=== PATIENT | female | born 1970 | race African-American/Black ===

== ENCOUNTER 2018-02-10 19:37 | Observation (INO) | payer OTHER ==
[2018-02-10 19:59] LABS: ABSOLUTE EOSINOPHILS # (AUTO) 0.1 10^3/uL (0.0-0.6); ABSOLUTE LYMPHOCYTES (AUTO) 3.2 10^3/uL (0.5-4.7); ABSOLUTE MONOCYTES (AUTO) 0.5 10^3/uL (0.1-1.4); ABSOLUTE NEUT (AUTO) 2.1 10^3/uL (1.7-8.2); BASOPHILS % (AUTO) 0.6 % (0-2); EOSINOPHILS % (AUTO) 1.6 % (0-6); HEMATOCRIT 35.9 % (36.0-47.0); HEMOGLOBIN 12.1 g/dL (12.0-15.5); LYMPHOCYTES % (AUTO) 53.9 % (13-45); MEAN CORPUSCULAR HEMOGLOBIN 28.1 pg (27.0-33.4); MEAN CORPUSCULAR HGB CONC 33.6 g/dL (32.0-36.0); MEAN CORPUSCULAR VOLUME 84 fl (80-97); MONOCYTES % (AUTO) 8.7 % (3-13); PLATELET COUNT 327 10^3/uL (150-450); RED BLOOD COUNT 4.29 10^6/uL (3.72-5.28); SEGMENTED NEUTROPHILS % (AUTO) 35.2 % (42-78); TOTAL CELLS COUNTED % (AUTO) 100 %; WHITE BLOOD COUNT 5.9 10^3/uL (4.0-10.5)
[2018-02-10 20:05] LABS: ALANINE AMINOTRANSFERASE 17 U/L (9-52); ALBUMIN 4.4 g/dL (3.5-5.0); ALKALINE PHOSPHATASE 86 U/L (38-126); ANION GAP 16 (5-19); ASPARTATE AMINO TRANSFERASE 35 U/L (14-36); BILIRUBIN,DIRECT 0.3 mg/dL (0.0-0.4); BILIRUBIN,TOTAL 0.7 mg/dL (0.2-1.3); BLOOD UREA NITROGEN 15 mg/dL (7-20); CALCIUM 9.5 mg/dL (8.4-10.2); CARBON DIOXIDE 22 mmol/L (22-30); CHLORIDE 108 mmol/L (98-107); CREATINE KINASE 179 U/L (30-135); GLUCOSE 120 mg/dL (75-110); POTASSIUM 3.1 mmol/L (3.6-5.0); SODIUM 145.5 mmol/L (137-145); TOTAL PROTEIN 8.4 g/dL (6.3-8.2)
[2018-02-10 20:17] LABS: CREATINE KINASE MB 0.65 ng/mL (<4.55)
--- NOTE | 2018-02-10 20:18 | RADIOLOGY REPORT (SQ) ---
EXAM DESCRIPTION: CHEST SINGLE VIEW COMPLETED DATE/TIME: 02/10/2018 8:07 pm REASON FOR STUDY: CP COMPARISON: None. EXAM PARAMETERS: NUMBER OF VIEWS: One view. TECHNIQUE: Single frontal radiographic view of the chest acquired. RADIATION DOSE: NA LIMITATIONS: None. FINDINGS: LUNGS AND PLEURA: No opacities, masses or pneumothorax. No pleural effusion. MEDIASTINUM AND HILAR STRUCTURES: No masses. Contour normal. HEART AND VASCULAR STRUCTURES: Heart normal in size. Normal vasculature. BONES: No acute findings. HARDWARE: None in the chest. OTHER: No other significant finding. IMPRESSION: NO ACUTE RADIOGRAPHIC FINDING IN THE CHEST. TECHNICAL DOCUMENTATION: JOB ID: [id number] 6- All Rights Reserved Reading location - IP/workstation name: [email or web address]
[2018-02-10 20:29] LABS: TROPONIN I < 0.012 ng/mL
[2018-02-10] MEDS ORDERED: KETOROLAC TROMETHAMINE INJ/PF 30 MG/1 ML SDV IV ONE (21:31)
--- NOTE | 2018-02-10 21:40 | ER Document Report ---
ED General - General Chief Complaint: Chest Pain Stated Complaint: CHEST PAIN Time Seen by Provider: 02/10/18 19:45 Notes: Patient is a 48-year-old female with a past medical history of hypercholesterolemia, no prior known history of coronary artery disease or DC who presents with chest pain. The patient reports that for the past 36 hours every time she exerts herself she develops right shoulder pain that is a dull, throbbing pain. She notes associated shortness of breath with this pain. The pain does resolve after she rests. She states today however she was at a Bible study at approximately 1830 when she developed an acute onset of a tight, pressure-like sensation in the left side of her chest. She states that she had pain in her left jaw and right arm with associated shortness of breath. She states that her symptoms were resolved after receiving 3 sublingual nitroglycerin by EMS. She also received aspirin prior to arrival. She denies any symptoms at the time of my assessment. She denies any history of similar symptoms in the past. She has not contacted her primary care doctor regarding today's concerns. She reports that she had a stress test approximately 10 years ago which was noted to be normal. - Related Data Allergies/Adverse Reactions: codeine Allergy (Verified 02/10/18 20:33) metoclopramide [From Reglan] Allergy (Verified 02/10/18 20:33) Past Medical History - General Information source: Patient - Social History Smoking Status: Never Smoker Frequency of alcohol use: None Drug Abuse: None Lives with: Family Family History: Reviewed & Not Pertinent Patient has suicidal ideation: No Patient has homicidal ideation: No - Past Medical History Cardiac Medical History: Reports: Hx Heart Attack Neurological Medical History: Reports: Hx Migraine Renal/ Medical History: Denies: Hx Peritoneal Dialysis Past Surgical History: Reports: Hx Hysterectomy, Hx Orthopedic Surgery - Rt knee Review of Systems - Review of Systems Notes: Constitutional: Negative for fever. HENT: Negative for sore throat. Eyes: Negative for visual changes. Cardiovascular: Positive for chest pain. Respiratory: Positive for shortness of breath. Gastrointestinal: Negative for abdominal pain, vomiting or diarrhea. Genitourinary: Negative for dysuria. Musculoskeletal: Negative for back pain. Skin: Negative for rash. Neurological: Negative for headaches, weakness or numbness. 10 point ROS negative except as marked above and in HPI. Physical Exam - Vital signs Vitals: Pulse Ox 97 02/10/18 19:42 Interpretation: Normal Notes: PHYSICAL EXAMINATION: GENERAL: Well-appearing, well-nourished and in no acute distress. HEAD: Atraumatic, normocephalic. EYES: Pupils equal round and reactive to light, extraocular movements intact, sclera anicteric, conjunctiva are normal. ENT: nares patent, oropharynx clear without exudates. Moist mucous membranes. NECK: Normal range of motion, supple without lymphadenopathy LUNGS: Breath sounds clear to auscultation bilaterally and equal. No wheezes rales or rhonchi. HEART: Regular rate and rhythm without murmurs ABDOMEN: Soft, nontender, normoactive bowel sounds. No guarding, no rebound. No masses appreciated. EXTREMITIES: Normal range of motion, no pitting or edema. No cyanosis. NEUROLOGICAL: No focal neurological deficits. Moves all extremities spontaneously and on command. PSYCH: Normal mood, normal affect. SKIN: Warm, Dry, normal turgor, no rashes or lesions noted. Course - Re-evaluation Re-evalutation: 02/10/18 21:38 Patient presents with a concerning chest pain history chest pain radiating to the left jaw, right arm with associated shortness of breath. She is also had intermittent symptoms worrisome for angina over the last 36 hours in which her right shoulder becomes painful and she develops shortness of breath when she exerts herself. She has had resolution of her chest pain after receiving 3 sublingual nitroglycerin by EMS. EKG shows some flattening in the anterior leads but no additional EKG findings. No old for comparison. Initial troponin is normal. Patient's clinical history is not consistent with an aortic dissection, chest x-ray is clear without evidence of pneumothorax or widened mediastinum. Clinical history is not consistent with acute pulmonary embolus, well score 0. I discussed with the hospitalist who is excepted the patient for admission for inpatient stress testing and serial cardiac markers as her heart score is elevated at 5. - Vital Signs Vital signs: Temp Pulse Resp BP Pulse Ox 97.7 F 59 L 16 106/67 100 02/11/18 01:12 02/11/18 02:00 02/11/18 01:12 02/11/18 01:12 02/11/18 01:12 - Laboratory Result Diagrams: 02/10/18 19:21 02/10/18 19:21 Laboratory results interpreted by me: 02/10/18 02/10/18 19:21 19:21 Hct 35.9 L RDW 15.0 H Seg Neutrophils % 35.2 L Lymphocytes % 53.9 H Sodium 145.5 H Potassium 3.1 L Chloride 108 H Glucose 120 H Creatine Kinase 179 H Total Protein 8.4 H - Diagnostic Test Radiology reviewed: Image reviewed, Reports reviewed Radiology results interpreted by me: 02/10/18 21:39 Chest x-ray: No acute infiltrate or pneumothorax - EKG Interpretation by Me Additional EKG results interpreted by me: 02/10/18 21:39 Sinus rhythm. Rate 95. No ST elevations or depressions. QTC is 443. Discharge - Discharge Clinical Impression: Angina effort Chest pain Qualifiers: Chest pain type: unspecified Qualified Code(s): R07.9 - Chest pain, unspecified Condition: Fair Disposition: ADMITTED OBSERVATION Admitting Provider: Hospitalist Unit Admitted: Telemetry
[2018-02-10] MEDS ORDERED: DEXTROSE 40% GEL 15 GM TUBE PO PRN ×2 (23:29)
[2018-02-10] MEDS ORDERED: GLUCAGON,HUMAN RECOMB 1 MG INJ SUBCUT PRN (23:29)
[2018-02-10] MEDS ORDERED: NITROGLYCERIN 0.4 MG/TAB 25 TAB/BOTTLE SL PRN (23:29)
[2018-02-10] MEDS ORDERED: DEXTROSE 50%-WATER 25 GM/50 ML DISP.SYRIN IV PRN ×2 (23:29)
[2018-02-10] MEDS ORDERED: HEPARIN SOD (PORCINE) 5,000 UNIT/ML 1 ML SYRINGE SUBCUT SCH (23:45)
--- NOTE | 2018-02-11 00:30 | PDOC H&P ---
History of Present Illness Admission Date/PCP: 02/10/18 21:54 Patient complains of: chest pain History of Present Illness: GARCÍA FALCON is a 48 year old female who comes to the emergency department complaining of chest pain. Tells me the pain started yesterday night on her right shoulder, was pulling throbbing pain and was not worsening with movements , improved when she was at rest and took 1 pill of meloxicam. Today while she was walking fast she is started again with the same pain, this time associated with shortness of breath, she had to have slowed down and the pain improved. Was not associated with diaphoresis, nausea, vomiting, dizziness. While in gnosticism the pain came back, this time up to 10/10 intensity and radiated to the right jaw. Patient came to the emergency department and the pain improved after 3 sublingual nitroglycerin. By the time I saw her she was chest pain- free. Initially she had decreased exertional tolerance is secondary to her right knee surgeries. Tells me that she had chest pain in the past and had a stress test more than 10 years ago which was negative. 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 EKG shows flattening in the anterior leads, no ST elevation or depression. First set of troponins negative. Past Medical History Past Medical History: Migraines Use right hearing aid Chronic back pain Cardiac Medical History: Reports: Hyperlipidema Denies: Myocardial Infarction Pulmonary Medical History: Reports: Asthma Neurological Medical History: Reports: Migraine Past Surgical History Past Surgical History: Reports: Hysterectomy, Orthopedic Surgery - 5 Rt knee surgeries Social History Lives with: Family, Spouse/Significant other - grandkids Smoking Status: Never Smoker Frequency of Alcohol Use: None Hx Recreational Drug Use: No Family History Family History: Father at 28 years old with brain tumor. Mother alive 67 years old with no medical condition. 4 siblings all of them healthy. Parental Family History Reviewed: Yes - In Family history Children Family History Reviewed: NA Sibling(s) Family History Reviewed.: Yes Medication/Allergy Allergies/Adverse Reactions: codeine Allergy (Verified 02/10/18 20:33) metoclopramide [From Reglan] Allergy (Verified 02/10/18 20:33) Review of Systems ROS unobtainable: Due to endotracheal tube Review of Systems: As outlined in the HPI, all others negative Physical Exam Vital Signs: Temp Pulse Resp BP Pulse Ox 21 H 112/73 99 02/10/18 23:02 02/10/18 23:02 02/10/18 23:02 General appearance: PRESENT: no acute distress, morbidly obese Head exam: PRESENT: atraumatic, normocephalic Eye exam: PRESENT: conjunctiva pink, EOMI, PERRLA Ear exam: PRESENT: normal external ear exam Mouth exam: PRESENT: moist, neck supple, tongue midline Neck exam: PRESENT: full ROM Respiratory exam: PRESENT: unlabored Cardiovascular exam: PRESENT: RRR Pulses: PRESENT: normal carotid pulses, normal dorsalis pedis pul, +2 pedal pulses bilateral Vascular exam: PRESENT: normal capillary refill GI/Abdominal exam: PRESENT: normal bowel sounds, soft Musculoskeletal exam: PRESENT: ambulatory, normal inspection Neurological exam: PRESENT: alert, oriented to person, oriented to place, oriented to time, oriented to situation, reflexes normal, CN II-XII grossly intact, motor sensory deficit, normal gait Psychiatric exam: PRESENT: appropriate affect Skin exam: PRESENT: normal color Results EKG Comments: Flattening in anterior leads, no ST elevation, ST depression or T wave inversions. Impressions: Chest X-Ray 02/10/18 19:45 IMPRESSION: NO ACUTE RADIOGRAPHIC FINDING IN THE CHEST. Assessment & Plan - Diagnosis (1) Chest pain Qualifiers: Chest pain type: unspecified Plan: Patient comes complaining of right shoulder pain since last night, has characteristics of typical chest pain. We will go ahead and give the patient on telemetry monitoring overnight. Cycle cardiac enzymes x3. Nitroglycerin sublingual as needed. Pharmacological stress test as the patient is unable to do treadmill secondary to her knee pain. Oxygen protocol as needed (2) Hyperlipidemia Qualifiers: Hyperlipidemia type: unspecified Qualified Code(s): E78.5 - Hyperlipidemia , unspecified Plan: Continue with home medication (3) Bronchial asthma Qualifiers: Asthma severity: unspecified severity Plan: Patient does not have current respiratory symptoms, is clear. No acute intervention, can use home bronchodilator.
[2018-02-11 03:44] LABS: CHOLESTEROL 221.04 mg/dL (0-200); TRIGLYCERIDES 110 mg/dL (<150)
[2018-02-11 03:55] LABS: DIRECT LDL 151 mg/dL (<100)
[2018-02-11] MEDS: HEPARIN SOD (PORCINE) 5,000 UNIT/ML 1 ML SYRINGE SUBCUT SCH ×2 (05:49→15:09)
[2018-02-11] MEDS ORDERED: POTASSIUM CHLORIDE 10 MEQ CAPSULE.ER PO SCH (06:00)
[2018-02-11] MEDS ORDERED: POTASSIUM CHLORIDE 10 MEQ CAPSULE.ER PO ONE (06:00)
[2018-02-11] MEDS ORDERED: ASPIRIN 81 MG TABLET, ENT COATED PO SCH (10:00)
--- NOTE | 2018-02-11 10:08 | EKG REPORT ---
SEVERITY:- BORDERLINE ECG - SINUS RHYTHM BORDERLINE T ABNORMALITIES, ANTERIOR LEADS : Confirmed by: Yennifer Irwin 11-Feb-2018 10:06:31
[2018-02-11] MEDS ORDERED: REGADENOSON INJ 0.4 MG/5 ML DISP.SYRIN IV ONE (12:36)
--- NOTE | 2018-02-11 13:39 | DRAGON STRESS TEST REPORT ---
INTRAVENOUS LEXISCAN CARDIOLITE STRESS TEST USING SINGLE PHOTON EMMISION COMPUTERIZED TOMOGRAPHIC. DATE OF PROCEDURE: February 11, 2018, INDICATION : Chest pain CARDIAC RISK FACTORS: Diabetes, dyslipidemia RESTING EKG: Sinus rhythm without any baseline ST-T wave changes STRESS EKG: No significant ST segment changes noted with LexiScan bolus REASON FOR TERMINATION: Protocol. PROCEDURE REPORT: Baseline heart rate 68 beats per minute with blood pressure of 113/77. Patient had no significant complaints. Patient was bolused with Lexiscan 0.4 mg intravenously followed by saline bolus. Heart rate at 2 minutes post bolus 129 with a blood pressure of 137/78. 3 minutes post bolus heart rate 113 with blood pressure of 147/80. No significant EKG changes were noted. Patient had no significant complaints during the procedure or postprocedure. CONCLUSIONS: Normal EKG and hemodynamic response to IV LexiScan. NUCLEAR DATA: At rest the patient was given 14.16 millicuries of technetium 99 sestamibi injected intravenously. As per protocol rest gated SPECT images were obtained. On day of stress test, the patient was given intravenous LexiScan at a dose of 0.4 mg in 5 mL intravenously, followed by flush with normal saline. Subsequently the stress dose of 42.6 millicuries of technetium 99 sestamibi was injected intravenously. As per protocol stress gated images were obtained. NUCLEAR INTERPRETATION: Both raw and processed data were used for interpretation. Visual, qualitative, computer-generated quantitative data was used. There was good myocardial uptake of technetium compound. Motion artifact and soft tissue attenuations were noted. Increased visceral uptake was noted. No definitive areas of transient perfusion defect noted, No definitive areas of fixed perfusion defect or scars noted. EKG gated imaging showed LV EF at 79 %, rest and stress gated EF similar visually. T. I D. ratio was 1.28. Lung heart ratio noted to be within normal limits 0.43. No significant extracardiac and abnormal radiotracer activities were noted. RV free wall uptake was noted to be WNL. IMPRESSION: Also refer to comments under nuclear interpretation. Also test results needs to be interpreted in the context of pretest probability. 1. No definitive areas of transient perfusion defect noted. 2. There is no definitive scintigraphic evidence of myocardial infarction/scar. 3. EKG gated imaging shows left ventricular ejection fraction of approx. 79 %. 4. Clinical correlation requested as occasionally single vessel disease or balanced ischemia could be missed. In approximately 10% of the cases Lexiscan may not cause adequate vasodilatory stress. 5. Borderline transient ischemic dilatation noted, however based on more recent literature review, journal of nuclear medicine October 2013, suggest that transient ischemic dilatation does not necessarily suggest increased cardiovascular event risk in the absence of significant perfusion abnormalities. RECOMMENDATIONS: Aggressive risk factor modification and medical management. Further evaluation may be needed if continued symptoms or other high risk indicators are noted on clinical evaluation. Close cardiology follow-up is also recommended. Clinical correlation with echocardiogram derived ejection fraction. Inability to exercise by itself can lead to increased cardiovascular event risks. Consider cardiology consultation and or follow-up if clinically indicated. I am available for cardiology evaluation and consultation if requested by the director of primary, unless patient already has a eligibility technician. Dr. Pacheco Irwin. MRCP Board certified in cardiology and sleep medicine. Board certified in nuclear cardiology, adult echocardiography. MIA
[2018-02-11 16:38] VITALS: BP 102/60
--- NOTE | 2018-02-11 17:00 | PDOC DISCHARGE SUMMARY ---
<TITI HARO - Last Filed: 02/11/18 16:55> General - Admit/Disc Date/PCP Admission Date/Primary Care Provider: 02/10/18 21:54 Discharge Date: 02/11/18 - Discharge Diagnosis (1) Chest pain Is this a current diagnosis for this admission?: Yes Summary: Cardiolite stress test was negative. 3 sets of troponins were all negative. Pain was atypical for cardiac origin. More likely GI origin. (2) Bronchial asthma Is this a current diagnosis for this admission?: Yes Summary: Continue current inhalers. (3) Hyperlipidemia Is this a current diagnosis for this admission?: Yes Summary: Continue statin. - Additional Information Resuscitation Status: Full Code Discharge Diet: Regular Discharge Activity: Activity As Tolerated, Balance Activity w/Rest Prescriptions: Esomeprazole Magnesium [Nexium] 40 mg PO DAILY #30 capsule. Home Medications: Albuterol Sulfate [Albuterol Sulfate 2.5mg/3 mL] 1 vial IH RTQ6HP PRN 02/11/18 Albuterol Sulfate [Proair HFA Inhalation Aerosol 8.5 gm MDI] 2 puff IH Q4HP PRN 02/11/18 Atorvastatin Calcium [Lipitor] 40 mg PO QHS 02/11/18 Budesonide/Formoterol Fumarate [Symbicort 160-4.5 Mcg Inhaler] 2 puff IH BID Bupropion HCl [Bupropion HCl Sr] 200 mg PO BID 02/11/18 Cholecalciferol (Vitamin D3) [Vitamin D3] 2,000 unit PO DAILY 02/11/18 Clonazepam [Klonopin 1 mg Tablet] 1 mg PO BID 02/11/18 Clonazepam [Klonopin 1 mg Tablet] 2 mg PO QHS 02/11/18 Cyclobenzaprine HCl [Flexeril 10 mg Tablet] 10 mg PO BIDP PRN 02/11/18 Donepezil HCl [Aricept] 10 mg PO DAILY 02/11/18 Esomeprazole Magnesium [Nexium] 40 mg PO DAILY #30 capsule. 02/11/18 Ferrous Sulfate 650 mg PO BID 02/11/18 Gabapentin [Neurontin 300 mg Capsule] 600 mg PO Q8 02/11/18 Lidocaine [Lidocare] 1 each TP DAILYP PRN 02/11/18 Loratadine [Claritin 10 mg Tablet] 10 mg PO DAILYP PRN 02/11/18 Meloxicam [Mobic 15 mg Tablet] 15 mg PO DAILY 02/11/18 Mometasone Furoate [Nasonex] 2 spray NASL QHS 02/11/18 Prochlorperazine [Compazine] 25 mg RC DAILYP PRN 02/11/18 Ranitidine HCl [Acid Control] 150 mg PO BID 02/11/18 Sodium Chloride [Nasal Moisturizer] 1 spray NASL DAILYP PRN 02/11/18 Sumatriptan Succinate [Imitrex 100 mg Tablet] 100 mg PO DAILYP PRN MDD 2 TABS Trazodone HCl [Desyrel] 100 mg PO QHS 02/11/18 Zolpidem Tartrate [Ambien] 10 mg PO QHS 02/11/18 History of Present Illness Patient complains of: Right sided chest pain and shortness of breath History of Present Illness: GARCÍA FALCON is a 48 year old female who comes to the emergency department complaining of chest pain. Tells me the pain started yesterday night on her right shoulder, was pulling throbbing pain and was not worsening with movements , improved when she was at rest and took 1 pill of meloxicam. Today while she was walking fast she is started again with the same pain, this time associated with shortness of breath, she had to have slowed down and the pain improved. Was not associated with diaphoresis, nausea, vomiting, dizziness. While in sabianism the pain came back, this time up to 10/10 intensity and radiated to the right jaw. Patient came to the emergency department and the pain improved after 3 sublingual nitroglycerin. By the time I saw her she was chest pain- free. Initially she had decreased exertional tolerance is secondary to her right knee surgeries. Tells me that she had chest pain in the past and had a stress test more than 10 years ago which was negative. 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 EKG shows flattening in the anterior leads, no ST elevation or depression. First set of troponins negative Patient was admitted to the telemetry unit. She had no further chest discomfort. She is a total of 3 sets of troponins done which were all unremarkable. She underwent Cardiolite stress testing today by Dr. Irwin, hogshead head matcher. Test was interpreted as negative for cardiac ischemia. She was noted to have an EF approximately 70%. She states she has been having increasing reflux symptoms despite taking her omeprazole. She would like to try a different proton pump inhibitor and see if there is improvement of her symptoms. We placed her on Nexium 40 mg daily. She will follow-up with her primary care provider in the next week. Physical Exam Vital Signs: Temp Pulse Resp BP Pulse Ox 97.4 F 70 17 102/60 96 02/11/18 16:36 02/11/18 16:36 02/11/18 16:36 02/11/18 16:36 02/11/18 16:36 Intake & Output 02/10/18 02/11/18 02/12/18 06:59 06:59 06:59 Intake Total 0 591 Balance 0 591 Weight 100.5 kg General appearance: PRESENT: no acute distress, obese, well-developed, well- nourished Head exam: PRESENT: atraumatic, normocephalic Eye exam: PRESENT: conjunctiva pink, EOMI, PERRLA. ABSENT: scleral icterus Ear exam: PRESENT: normal external ear exam Mouth exam: PRESENT: moist, tongue midline Neck exam: ABSENT: carotid bruit, JVD, lymphadenopathy, thyromegaly Respiratory exam: PRESENT: clear to auscultation christian. ABSENT: rales, rhonchi, wheezes Cardiovascular exam: PRESENT: RRR. ABSENT: diastolic murmur, rubs, systolic murmur Pulses: PRESENT: normal dorsalis pedis pul Vascular exam: PRESENT: normal capillary refill GI/Abdominal exam: PRESENT: normal bowel sounds, soft. ABSENT: distended, guarding, mass, organolmegaly, rebound, tenderness Rectal exam: PRESENT: deferred Extremities exam: PRESENT: full ROM. ABSENT: calf tenderness, clubbing, pedal edema Neurological exam: PRESENT: alert, awake, oriented to person, oriented to place , oriented to time, oriented to situation, CN II-XII grossly intact. ABSENT: motor sensory deficit Psychiatric exam: PRESENT: appropriate affect, normal mood. ABSENT: homicidal ideation, suicidal ideation Skin exam: PRESENT: dry, intact, warm. ABSENT: cyanosis, rash Results Laboratory Results: 02/11/18 03:21 Triglycerides 110 Cholesterol 221.04 H LDL Cholesterol Direct 151 H VLDL Cholesterol 22.0 HDL Cholesterol 41 02/11/18 02/11/18 02/11/18 03:21 09:12 15:24 Troponin I < 0.012 < 0.012 < 0.012 Impressions: Chest X-Ray 02/10/18 19:45 IMPRESSION: NO ACUTE RADIOGRAPHIC FINDING IN THE CHEST. Qualifiers - * PATIENT BEING DISCHARGED WITH ANY OF THE FOLLOWING DIAGNOSIS: No Plan Discharge Plan: Home with . She will follow-up with her primary care provider next week. Time Spent: Less than 30 Minutes <AZAM FREGOSO - Last Filed: 02/11/18 18:13> General - Admit/Disc Date/PCP Admission Date/Primary Care Provider: 02/10/18 21:54 History of Present Illness History of Present Illness: GARCÍA FALCON is a 48 year old female Physical Exam Vital Signs: Temp Pulse Resp BP Pulse Ox 97.4 F 70 17 102/60 96 02/11/18 16:36 02/11/18 16:36 02/11/18 16:36 02/11/18 16:36 02/11/18 16:36 Intake & Output 02/10/18 02/11/18 02/12/18 06:59 06:59 06:59 Intake Total 0 591 Balance 0 591 Weight 100.5 kg Results Laboratory Results: 02/11/18 03:21 Triglycerides 110 Cholesterol 221.04 H LDL Cholesterol Direct 151 H VLDL Cholesterol 22.0 HDL Cholesterol 41 02/11/18 02/11/18 02/11/18 03:21 09:12 15:24 Troponin I < 0.012 < 0.012 < 0.012 Impressions: Chest X-Ray 02/10/18 19:45 IMPRESSION: NO ACUTE RADIOGRAPHIC FINDING IN THE CHEST. Provider Note Provider Note: I have discussed the patient in detail with ANTONIO Haro. I am in agreement with her evaluation and plan.
== END 2018-02-11 18:16 | disposition home or self-care (01) ==
LOC: ER 19:37 → EH 21:54 → 4S 02-11 01:11
PROVIDERS: ADMIT Internal Medicine; ATTEND Internal Medicine
DX: R07.89 Other chest pain (principal); J45.909 Unspecified asthma, uncomplicated; E78.5 Hyperlipidemia, unspecified; M25.511 Pain in right shoulder; E66.9 Obesity, unspecified; R06.02 Shortness of breath; G89.29 Other chronic pain; M54.9 Dorsalgia, unspecified; R68.84 Jaw pain; M79.601 Pain in right arm; Z79.899 Other long term (current) drug therapy; Z98.890 Other specified postprocedural states; Z68.38 Body mass index [BMI] 38.0-38.9, adult
CPT/HCPCS: 93005; 99285; 96374; 36415 ×2; 82553; 82550; 85025; 80053; 84484 ×2; 80061; 93017; 71045; 78452; 93010; A9500; J2785; J1644; J1885; G0378